=== PATIENT | female | born 1945 | race Caucasian/White ===

== ENCOUNTER → 2022-03-10 | Outpatient (CLI) | payer MEDICARE ==
--- NOTE | 2022-03-10 13:52 | Diagnostic Imaging Report ---
PROCEDURE: US Renal Bilateral. TECHNIQUE: Multiple Real-time grayscale images were obtained over the kidneys in various projections bilaterally. INDICATION: Chronic kidney disease, stage III. FINDINGS: The right kidney measures 10.3 x 4.8 x 4.3 cm and the left kidney measures 9.1 x 4.2 x 4.6 cm. The cortical thickness and echogenicity are normal. No calculi are seen. There is no hydronephrosis. The bladder demonstrates bilateral ureteral jets. IMPRESSION: Unremarkable renal ultrasound. Dictated by: Dictated on workstation # [id number]
== END ==
LOC: RAD 13:00
PROVIDERS: ATTEND Internal Medicine Nephrology
DX: N18.31 Chronic kidney disease, stage 3a (principal)
CPT/HCPCS: 76770

== ENCOUNTER → 2022-06-15 | Outpatient (CLI) | payer MEDICARE ==
[~2022-06-15] MED LIST: RT-ALBUTEROL SULF 2.5 MG/3 ML PRE-MIX VIAL INH ONE
== END ==
LOC: RT 06-09 14:27
PROVIDERS: ATTEND Nurse Practitioner Family
DX: J44.9 Chronic obstructive pulmonary disease, unspecified (principal); F17.200 Nicotine dependence, unspecified, uncomplicated; Z99.81 Dependence on supplemental oxygen
CPT/HCPCS: 94060; 94726; 94729

== ENCOUNTER 2022-10-28 20:16 | Outpatient (CLI) | payer MEDICARE | END 2022-10-29 06:37 | disposition home or self-care (01) | LOC: SLEEP 20:16 | PROVIDERS: ATTEND Nurse Practitioner Family | DX: G47.34 Idiopathic sleep related nonobstructive alveolar hypoventilation (principal); J44.9 Chronic obstructive pulmonary disease, unspecified; G47.10 Hypersomnia, unspecified; G47.9 Sleep disorder, unspecified; Z99.81 Dependence on supplemental oxygen | CPT/HCPCS: 95811 ==

== ENCOUNTER 2023-06-10 20:22 | Outpatient (CLI) | payer MEDICARE, MEDICAID | END 2023-06-11 06:25 | LOC: SLEEP 20:22 | PROVIDERS: ATTEND Nurse Practitioner Family | DX: G47.33 Obstructive sleep apnea (adult) (pediatric) (principal); J44.9 Chronic obstructive pulmonary disease, unspecified | CPT/HCPCS: 95810 ==